=== PATIENT | male | born 1975 | race Caucasian/White ===

== ENCOUNTER 2016-08-21 01:51 | Emergency (ER) | payer SELFPAY ==
[~2016-08-21] VITALS: Ht 172.7 cm; Wt 66.0 kg
[~2016-08-21 01:51] MED LIST: GLUCTES27 XX; NOVO7030P2 SQ
[2016-08-21 01:53] VITALS: BP 158/84; PULSE 100; RESP 16; TEMP 98.1; O2SAT 98
[2016-08-21] MEDS ORDERED: LIDOCAINE 1%/EPINEPHrine 1:100,000 SOLN 20 ML VIAL INFIL ONE ×2 (04:00→05:15)
[2016-08-21] MEDS ORDERED: DOXYCYCLINE INJ 100 MG in SODIUM CHLORIDE 0.9% INJ 100 ML IV ONE (04:00)
[2016-08-21] MEDS ORDERED: cefTRIAXone INJ 1,000 MG in SODIUM CHLORIDE 0.9% INJ 100 ML IV ONE (04:00)
[2016-08-21] MEDS ORDERED: NOVO7030P2 SQ (04:14)
[2016-08-21 04:16] LABS: AUTOMATED NEUTROPHIL # 9.8 TH/MM3 (1.8-7.7); BASOPHIL # 0.1 TH/MM3 (0-0.2); BASOPHIL % 0.5 % (0.0-2.0); EOSINOPHIL % 0.2 % (0.0-4.0); HEMO FLAGS DIFF FINAL; LYMPH % 9.6 % (9.0-44.0); LYMPHOCYTE # 1.1 TH/MM3 (1.0-4.8); MEAN CELL VOLUME 88.8 FL (80.0-100.0); MEAN CORPUSCULAR HEMOGLOBIN 29.8 PG (27.0-34.0); MEAN CORPUSCULAR HGB CONC 33.6 % (32.0-36.0); MONO % 7.3 % (0.0-8.0); NEUT % 82.4 % (16.0-70.0); PLATELET COUNT 275 TH/MM3 (150-450); RED BLOOD COUNT 4.85 MIL/MM3 (4.50-5.90); RED CELL DISTRIBUTION WIDTH 13.1 % (11.6-17.2); WHITE BLOOD COUNT 11.9 TH/MM3 (4.0-11.0)
--- NOTE | 2016-08-21 05:40 | PD ---
HPI Chief Complaint: Skin Problem Time Seen by Provider: 03:45 (Hemalatha Maguire MD) Travel History International Travel<30 days: No Contact w/Intl Traveler<30days: No Traveled to known affect area: No (Hemalatha Maguire MD) History of Present Illness HPI This is a 41-year-old male patient type I diabetic who presents with a complaint of an area of tenderness swelling and redness over the left side of the face times several days. Patient denies fever and chills. Is unsure whether he was bitten by an insect patient does not remember any recent trauma. The significant other that what warm compresses applied and they attempted to aspirate material from the area without success. She notes progressive swelling of the left side of the face. 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 Reported Meds & Prescriptions Reported Meds & Active Scripts Active Doxycycline Hyclate DR (Doxycycline Hyclate) 100 Mg Tab 100 Mg PO BID 10 Days Keflex (Cephalexin) 500 Mg Cap 500 Mg PO Q12H 10 Days Tylenol-Codeine #3 (Acetaminophen-Codeine) 300-30 mg Tab 1 Tab PO Q6HR PRN Reported Novolin 70-30 Inj (Insulin Human Isoph/Insulin Regular) 1,000 Unit/10 Ml Vial 35 Units SQ BID (Tanja Pearl MD) Review of Systems ROS Limitations: Clinical Condition General / Constitutional: No: Fever, Chills, Weight Gain, Weight Loss, Other Eyes: No: Diploplia, Blurred Vision, Photophobia, Drainage, Redness, Foreign Body Sensation, Pain, Tearing, Blind Spots, Visual changes, Blindness, Other HENT: No: Headaches, Vertigo, Lightheadedness, Sore Throat, Rhinitis, Rhinorrhea, Congestion, Nosebleed, Neck Stiffness, Neck Pain, Masses, Gingival Bleeding, Dental Difficulties, Ear Discharge, Earache, Other Cardiovascular: No: Chest Pain or Discomfort, Palpitations, Irregular Rhythm, Tachycardia, Diaphoresis, Syncope, Dyspnea on exertion, Varicosities, Edema, Cyanosis, Varicosities, Phlebitis, Claudication, Other Respiratory: No: Cough, Shortness of Breath, Wheezing, Sneezing, Orthopnea, Hemoptysis, Stridor, Night Sweats, Pleuritic Pain, Other Gastrointestinal: No: Nausea, Vomiting, Diarrhea, Abdominal Pain, Hematemesis, Hematochezia, Constipation, Changes in Bowel Habits, Indigestion, Dysphagia, Loss of Appetite, Other Genitourinary: No: Urgency, Frequency, Dysuria, Nocturia, Hematuria, Decreased Urinary Output, Oliguria, Hesitancy, Dribbling, Incontinence, Pelvic Pain, Flank Pain, Dyspareunia, Discharge, Dysmenorrhea, Menorrhagia, Metorrhagia, Vaginal Bleeding, Other Musculoskeletal: No: Myalgias, Arthralgias, Limited ROM, Weakness, Cramping, Edema, Pain, Atrophy, Other Skin: Positive Lumps, Positive Lesions, No Rash, No Itching, No Dryness, No Hives, No Change in Pigmentation, No Change in nails, No Alopecia, No Breast Lumps, No Breast Tenderness, No Breast Swelling, No Other Neurologic: No: Weakness, Dizziness, Syncope, Focal Abnormalities, Coordination Problem, Tremor, Ataxia, Headache, Change in Mentation, Slurred Speech, Paresthesia, Incontinence, Seizures, Sensory Disturbance, Other Psychiatric: No: Anxiety, Depression, Suicidal Ideations, Disorder of Thought, Mood Disorder, Substance Abuse, Homicidal Ideation, Other Endocrine: No: Heat Intolerance, Cold Intolerance, Polyuria, Polydipsia, Other Hematologic/Lymphatic: No: Easy Bruising, Lymph Node Enlargement, Other (Hemalatha Maguire MD) Physical Exam Narrative Dip Stand Loader signing for document in draft. (Tanja Pearl MD) Data Data Orders Complete Blood Count With Diff (08/21/16 03:49) Ceftriaxone Inj (Rocephin Inj) (08/21/16 04:00) Doxycycline Inj (Vibramycin Inj) (08/21/16 04:00) Tray, Incision & Drainage Ea (08/21/16 03:49) Lidocai-Epi 1%-1:100,000 Inj (Xylocaine- (08/21/16 04:00) Lidocai-Epi 1%-1:100,000 Inj (Xylocaine- (08/21/16 05:15) Comprehensive Metabolic Panel (08/21/16 05:29) (Tanja Pearl MD) [facility] Medical Decision Making Medical Screen Exam Complete: Yes Emergency Medical Condition: Yes Medical Record Reviewed: Yes Differential Diagnosis Differential diagnoses atrial cellulitis abscess insect bite Narrative Course This is a 41-year-old male type I diabetic patient who presents with swelling redness and tendernes over the left lateral brow region A Marcela attempted to treat home with warm compresses and pressure to attempt to aspirate area therapeutic interventions at home were ineffective. He is nontoxic in presentation of UBC 11,000 with a left shift area clean with ChloraPrep and anesthetized with lidocaine 1% with epi and use a 18-gauge needle and a cerumen attempted to aspirate area unsuccessfully area is mildly edematous but there is no true fluctuance noted Patient is nontoxic in appearance She given IV Keflex and IV doxycycline and the plan is to for the patient to return in 24 hours for reevaluation and determination as to whether a drainage procedure is indicated She also given analgesics IV for pain and will be discharged on Tylenol 3 and Keflex and doxycycline (Hemalatha Maguire MD) Narrative Course Dip Stand Loader signing for document in draft. (Tanja Pearl MD) Diagnosis Primary Impression: Facial cellulitis Additional Instructions: Apply warm compresses every 3-4 hours to affected area Take Tylenol No. 3 as needed for pain Finished antibiotic Turned to the ER in 24 hours for reevaluation of affected area and determination of the need for CT scan of the maxillofacial bones and a determination if incision and drainage is indicated Seek medical care immediately if there is increased pain and swelling redness of the area fever chills Scripts Doxycycline Hyclate DR 100 Mg [id number] Mg PO BID 10 Days Ref 0 Prov:Hemalatha Maguire MD 08/21/16 Cephalexin (Keflex)500 Mg [id number] Mg PO Q12H 10 Days Ref 0 Prov:Hemalatha Maguire MD 08/21/16 Acetaminophen-Codeine (Tylenol-Codeine #3)300-30 mg Tab1 Tab PO Q6HR PRN (PAIN) #15 TAB Ref 0 Prov:Hemalatha Maguire MD 08/21/16 Disposition: 01 DISCHARGE HOME Condition: Stable Hemalatha Maguire MD Aug 21, 2016 05:40 Tanja Pearl MD Sep 05, 2016 17:20 Differential Comment MDM Medical Decision Making Medical Screen Exam Complete: Yes Emergency Medical Condition: Yes Medical Record Reviewed: Yes Differential Diagnosis Differential diagnoses atrial cellulitis abscess insect bite Narrative Course This is a 41-year-old male type I diabetic patient who presents with swelling redness and tendernes over the left lateral brow region A Marcela attempted to treat home with warm compresses and pressure to attempt to aspirate area therapeutic interventions at home were ineffective. He is nontoxic in presentation of UBC 11,000 with a left shift area clean with ChloraPrep and anesthetized with lidocaine 1% with epi and use a 18-gauge needle and a cerumen attempted to aspirate area unsuccessfully area is mildly edematous but there is no true fluctuance noted Patient is nontoxic in appearance She given IV Keflex and IV doxycycline and the plan is to for the patient to return in 24 hours for reevaluation and determination as to whether a drainage procedure is indicated She also given analgesics IV for pain and will be discharged on Tylenol 3 and Keflex and doxycycline Diagnosis Primary Impression: Facial cellulitis Additional Instructions: Apply warm compresses every 3-4 hours to affected area Take Tylenol No. 3 as needed for pain Finished antibiotic Turned to the ER in 24 hours for reevaluation of affected area and determination of the need for CT scan of the maxillofacial bones and a determination if incision and drainage is indicated Seek medical care immediately if there is increased pain and swelling redness of the area fever chills Scripts Doxycycline Hyclate DR 100 Mg [id number] Mg PO BID 10 Days Ref 0 Prov:Hemalatha Maguire MD 08/21/16 Cephalexin (Keflex)500 Mg [id number] Mg PO Q12H 10 Days Ref 0 Prov:Hemalatha Maguire MD 08/21/16 Acetaminophen-Codeine (Tylenol-Codeine #3)300-30 mg Tab1 Tab PO Q6HR PRN (PAIN) #15 TAB Ref 0 Prov:Hemalatha Maguire MD 08/21/16 Disposition: 01 DISCHARGE HOME Condition: Stable Hemalatha Maguire MD Aug 21, 2016 05:40
[2016-08-21] MEDS ORDERED: CEPH-460 PO (05:53)
[2016-08-21] MEDS ORDERED: TYLETAB34 PO (05:53)
[2016-08-21] MEDS ORDERED: DOXY1TAB6 PO (05:54)
[2016-08-21 06:27] LABS: ALKALINE PHOSPHATASE 92 U/L (45-117); ALT (GPT) 16 U/L (12-78); ANION GAP 7 MEQ/L (5-15); AST (GOT) 33 U/L (15-37); BICARBONATE 26.2 MEQ/L (21.0-32.0); BLOOD UREA NITROGEN 14 MG/DL (7-18); CHLORIDE 103 MEQ/L (98-107); GLOMERULAR FILTRATION RATE 80 ML/MIN (>89); POTASSIUM 5.7 MEQ/L (3.5-5.1); SODIUM (NA) 136 MEQ/L (136-145); TOTAL BILIRUBIN ADULT 0.8 MG/DL (0.2-1.0)
== END 2016-08-21 05:58 | disposition home or self-care (01) ==
LOC: NEPC 01:51
DX: L03.211 Cellulitis of face (principal); E10.9 Type 1 diabetes mellitus without complications; I10 Essential (primary) hypertension; Z72.0 Tobacco use; Z87.39 Personal history of other diseases of the musculoskeletal system and connective tissue
CPT/HCPCS: 10160; 80053; 85025; 96365; 96367; 99284; J0696

== ENCOUNTER 2016-10-04 14:23 | Emergency (ER) | payer SELFPAY ==
[~2016-10-04] VITALS: Ht 172.7 cm; Wt 65.0 kg
[~2016-10-04 14:23] MED LIST changes: +CEPH-460 PO; +DOXY1TAB6 PO; -GLUCTES27 XX; +TYLETAB34 PO
[2016-10-04 14:34] VITALS: BP 135/84; PULSE 77; RESP 18; TEMP 98.4; O2SAT 98
[2016-10-04] MEDS ORDERED: SODIUM CHLORIDE 0.9% FLUSH 10 ML FLUSH IV FLUSH PRN (15:15)
[2016-10-04] MEDS ORDERED: ONDANSETRON HCL 4 MG/2 ML VIAL IVP ONE (15:15)
[2016-10-04] MEDS ORDERED: CIPROFLOXACIN 400 MG PREMIX 200 ML IV ONE (15:15)
[2016-10-04] MEDS ORDERED: SODIUM CHLOR 0.9% 1000 ML INJ 1,000 ML IV SCH (15:15)
[2016-10-04] MEDS ORDERED: VANCOMYCIN INJ 1,000 MG in SODIUM CHLOR 0.9% 250 ML INJ 250 ML IV ONE (15:15)
--- NOTE | 2016-10-04 15:20 | PD ---
HPI Chief Complaint: Diabetic Time Seen by Provider: 15:20 Travel History International Travel<30 days: No Contact w/Intl Traveler<30days: No Traveled to known affect area: No History of Present Illness HPI Patient comes in complaining of buttock infection ongoing for 3-4 days and hyperglycemia that he first noticed shortly prior to coming to the emergency department. Patient is a type I diabetic and has been so for approximately 35 years and ran out of his insulin this morning. He states his blood sugars normally run between 100-200. However today when he checked it it was over 400. He denies doing anything for this prior to coming to the emergency department. Patient states he noticed a sore on his buttocks and thought it will go away. States progressively got worse and started draining yesterday. Patient reports pain with palpation without radiation. Describes pain as pressure-like in nature. Denies any fevers, chest pain, shortness of breath, nausea, vomiting, loss or change in bowel or bladder, headache, or numbness or tingling anywhere. 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 Reported Meds & Prescriptions Reported Meds & Active Scripts Active Bactrim DS (Sulfamethoxazole-Trimethoprim) 800-160 Mg Tab 1 Tab PO BID Cipro (Ciprofloxacin HCl) 500 Mg Tab 500 Mg PO BID [address] (Doxycycline Hyclate) 100 Mg Tab 100 Mg PO BID 10 Days Keflex (Cephalexin) 500 Mg Cap 500 Mg PO Q12H 10 Days Tylenol-Codeine #3 (Acetaminophen-Codeine) 300-30 mg Tab 1 Tab PO Q6HR PRN Reported Novolin 70-30 Inj (Insulin Human Isoph/Insulin Regular) 1,000 Unit/10 Ml Vial 35 Units SQ BID Review of Systems Except as stated in HPI: all other systems reviewed are Neg Physical Exam Narrative GENERAL: Well-developed, well nourished, in no acute distress, and non-ill appearing. SKIN: Draining abscess noted right buttocks is tender to palpation. There is no crepitus, fluctuation, or significant surrounding cellulitis. HEAD: Atraumatic. Normocephalic. EYES: Pupils equal and round. EOMI. No scleral icterus. No injection or drainage. ENT: No nasal bleeding or discharge. Mucous membranes pink and moist. NECK: Trachea midline. Supple. No nuclear rigidity. CARDIOVASCULAR: Regular rate and rhythm. No murmur appreciated. RESPIRATORY: No accessory muscle use. No respiratory distress. Clear to auscultation. Breath sounds equal bilaterally. MUSCULOSKELETAL: No obvious deformities. No clubbing. No cyanosis. No edema. Full range of motion. NEUROLOGICAL: Awake and alert. No obvious cranial nerve deficits. Motor grossly within normal limits. Normal speech. PSYCHIATRIC: Appropriate mood and affect; insight and judgment normal. Data Data Last Documented VS Vital Signs Date Time Temp Pulse Resp B/P Pulse Ox O2 Delivery O2 Flow Rate FiO2 10/04/16 14:34 98.4 77 18 135/84 98 Orders Wound Culture And Gram Stain (10/04/16 15:15) Complete Blood Count With Diff (10/04/16 15:15) Iv Access Insert/Monitor (10/04/16 15:15) Ecg Monitoring (10/04/16 15:15) Oximetry (10/04/16 15:15) Ondansetron Inj (Zofran Inj) (10/04/16 15:15) Ciprofloxacin 400 Mg Premix (Cipro 400 M (10/04/16 15:15) Sodium Chlor 0.9% 1000 Ml Inj (Ns 1000 M (10/04/16 15:15) Sodium Chloride 0.9% Flush (Ns Flush) (10/04/16 15:15) Comprehensive Metabolic Panel (10/04/16 15:15) Beta Hydroxybutyrate (Acetone) (10/04/16 15:15) Urinalysis - C+S If Indicated (10/04/16 15:15) Blood Gas Venous (Vbg) (10/04/16 15:15) Blood Glucose (10/04/16 15:15) NPO (10/04/16 15:15) Vancomycin Inj (Vancomycin Inj) (10/04/16 15:15) Insulin Human Regular Inj (Novolin R Inj (10/04/16 16:45) Sodium Chlor 0.9% 1000 Ml Inj (Ns 1000 M (10/04/16 17:45) Labs Laboratory Tests Test 10/04/16 10/04/16 10/04/16 16:10 16:40 16:48 White Blood Count 8.9 TH/MM3 Red Blood Count 4.67 MIL/MM3 Hemoglobin 14.7 GM/DL Hematocrit 42.1 % Mean Corpuscular Volume 90.3 FL Mean Corpuscular Hemoglobin 31.5 PG Mean Corpuscular Hemoglobin 34.9 % Concent Red Cell Distribution Width 13.7 % Platelet Count 276 TH/MM3 Mean Platelet Volume 8.2 FL Neutrophils (%) (Auto) 69.8 % Lymphocytes (%) (Auto) 17.7 % Monocytes (%) (Auto) 10.4 % Eosinophils (%) (Auto) 0.8 % Basophils (%) (Auto) 1.3 % Neutrophils # (Auto) 6.2 TH/MM3 Lymphocytes # (Auto) 1.6 TH/MM3 Monocytes # (Auto) 0.9 TH/MM3 Eosinophils # (Auto) 0.1 TH/MM3 Basophils # (Auto) 0.1 TH/MM3 CBC Comment DIFF FINAL Differential Comment Sodium Level 135 MEQ/L Potassium Level 5.2 MEQ/L Chloride Level 99 MEQ/L Carbon Dioxide Level 26.5 MEQ/L Anion Gap 10 MEQ/L Blood Urea Nitrogen 19 MG/DL Creatinine 1.11 MG/DL Estimat Glomerular Filtration 73 ML/MIN Rate Random Glucose 441 MG/DL Calcium Level 9.3 MG/DL Total Bilirubin 0.7 MG/DL Aspartate Amino Transf 21 U/L (AST/SGOT) Alanine Aminotransferase 22 U/L (ALT/SGPT) Alkaline Phosphatase 117 U/L Total Protein 7.6 GM/DL Albumin 3.6 GM/DL B-Hydroxybutyrate 0.90 MMOL/L Urine Color LIGHT-YELLOW Urine Turbidity CLEAR Urine pH 6.0 Urine Specific [place] 1.040 Urine Protein NEG mg/dL Urine Glucose (UA) 1000 mg/dL Urine Ketones 10 mg/dL Urine Occult Blood SMALL Urine Nitrite NEG Urine Bilirubin NEG Urine Urobilinogen LESS THAN 2.0 MG/DL Urine Leukocyte Esterase NEG Urine RBC 6 /hpf Urine WBC 2 /hpf Microscopic Urinalysis Comment CULT NOT INDICATED Blood Gas Puncture Site LINE Blood Gas Patient Temperature 98.6 Venous Blood pH 7.40 Venous Blood Partial Pressure 42 mmHg CO2 Venous Blood Partial Pressure 50 mmHg O2 Venous Blood HCO3 25 mmol/L Venous Blood Oxygen Saturation 83 % Venous Blood Oxygen Content 17.2 Vol % Venous Blood Base Excess 0.6 mmol/L MDM Medical Decision Making Medical Screen Exam Complete: Yes Emergency Medical Condition: Yes Differential Diagnosis Abscess, cellulitis, uncontrolled diabetes, hyperglycemia, pilonidal abscess, other Narrative Course Patient in no obvious distress upon re-evaluation. All pertinent laboratory result(s) discussed with patient. Patient was asked if they wanted to speak to my attending, which the patient did not wish to do at this time. Patient wanting to leave secondary to be able to hot die picker his insulin from the pharmacy. Patient is not wanting to stay for remainder of IV antibiotics and further treatment. Patient is wanting to leave AGAINST MEDICAL ADVICE. I explained to the patient that I would still give him prescriptions for antibiotics and that I strongly recommend he stay to at least finish his antibiotics and IV fluids. Patient verbalized understanding of this however he still wanted to leave AGAINST MEDICAL ADVICE. The risks of leaving against medical advice without further evaluation treatment were discussed with the patient. These risks include cardiac dysfunction, cardiac dysrhythmia, possible heart attack, possible stroke or . The patient indicated understanding of these risks and appeared to have the capacity to make this decision. This was witnessed in front of staff trainer Vale. Any questions/concerns in reference to patient diagnosis/condition discussed and clarified prior to patient's discharge. Reinforced sheer importance of close follow up with patient's primary physician or primary care clinic or return here 2 days for recheck. Instructed patient to return to ED immediately, if symptoms return/worsen. Pt showed understanding of above instructions. Further instructions and recommendations were detailed in discharge paperwork. Pt ambulated without difficulty out of ED at discharge AGAINST MEDICAL ADVICE. Diagnosis Primary Impression: Left against medical advice Additional Impression: Abscess Patient Instructions: Abscess (GEN), Against Medical Advice (ED), General Instructions Additional Instructions: Follow-up with your primary care physician or return here in 2 days for recheck of your abscess. Take all medication as prescribed. Return to the emergency department if symptoms get worse. Med/Other Pt SpecificInfo: Prescription(s) given Scripts Sulfamethoxazole-Trimethoprim (Bactrim DS)800-160 Mg Tab1 Tab PO BID #14 TAB Ref 0 Prov:Fannie Christiansen DO 10/04/16 Ciprofloxacin (Cipro)500 Mg [id number] Mg PO BID 7 Days Ref 0 Prov:Christiansen,Fannie DO 10/04/16 Disposition: 07 AGAINST MEDICAL ADVICE Condition: Stable Stephen Ortega Oct 04, 2016 15:20
[2016-10-04] MEDS ORDERED: INSULIN HUMAN REGULAR 1,000 UNITS/10 ML VIAL IV PUSH ONE (16:45)
[2016-10-04 16:50] LABS: AUTOMATED NEUTROPHIL # 6.2 TH/MM3 (1.8-7.7); BASOPHIL # 0.1 TH/MM3 (0-0.2); BASOPHIL % 1.3 % (0.0-2.0); EOSINOPHIL # 0.1 TH/MM3 (0-0.4); EOSINOPHIL % 0.8 % (0.0-4.0); HEMATOCRIT 42.1 % (39.0-51.0); HEMO FLAGS DIFF FINAL; LYMPH % 17.7 % (9.0-44.0); LYMPHOCYTE # 1.6 TH/MM3 (1.0-4.8); MEAN CELL VOLUME 90.3 FL (80.0-100.0); MEAN CORPUSCULAR HEMOGLOBIN 31.5 PG (27.0-34.0); MEAN CORPUSCULAR HGB CONC 34.9 % (32.0-36.0); MONO % 10.4 % (0.0-8.0); NEUT % 69.8 % (16.0-70.0); PLATELET COUNT 276 TH/MM3 (150-450); RED BLOOD COUNT 4.67 MIL/MM3 (4.50-5.90); RED CELL DISTRIBUTION WIDTH 13.7 % (11.6-17.2); WHITE BLOOD COUNT 8.9 TH/MM3 (4.0-11.0)
[2016-10-04 17:01] LABS: BLOOD GAS VENOUS BASE EXCESS 0.6 mmol/L (-2-2); BLOOD GAS VENOUS HCO3 25 mmol/L (22-26); BLOOD GAS VENOUS O2 CONTENT 17.2 Vol % (9.0-17.0); BLOOD GAS VENOUS O2 HGB SAT 83 % (70-76); BLOOD GAS VENOUS PCO2 42 mmHg (44-48); BLOOD GAS VENOUS PO2 50 mmHg (35-40); CRITICAL VALUE NO; TEMP CORR TO 98.6
[2016-10-04 17:02] LABS: DRAW SITE LINE; STAT YES
[2016-10-04 17:17] LABS: ANION GAP 10 MEQ/L (5-15)
[2016-10-04 17:19] LABS: ALKALINE PHOSPHATASE 117 U/L (45-117); ALT (GPT) 22 U/L (12-78); AST (GOT) 21 U/L (15-37); BICARBONATE 26.5 MEQ/L (21.0-32.0); BLOOD UREA NITROGEN 19 MG/DL (7-18); CHLORIDE 99 MEQ/L (98-107); GLOMERULAR FILTRATION RATE 73 ML/MIN (>89); SODIUM (NA) 135 MEQ/L (136-145); TOTAL BILIRUBIN ADULT 0.7 MG/DL (0.2-1.0)
[2016-10-04 17:26] LABS: POTASSIUM 5.2 MEQ/L (3.5-5.1)
[2016-10-04 17:42] LABS: BLOOD, URINE SMALL (NEG); GLUCOSE,URINE 1000 mg/dL (NEG); KETONE, URINE 10 mg/dL (NEG); NITRITE,URINE NEG (NEG); URINE COLOR LIGHT-YELLOW (YELLW/STRAW)
[2016-10-04 17:43] LABS: COMMENT (UR) CULT NOT INDICATED; CULTURE IF INDICATED CULT NOT INDICATED
[2016-10-04] MEDS ORDERED: SODIUM CHLOR 0.9% 1000 ML INJ 1,000 ML IV ONE (17:45)
[2016-10-04] MEDS ORDERED: CIPR-9 PO (18:04)
[2016-10-04] MEDS ORDERED: BACT800T5 PO (18:04)
== END 2016-10-04 18:31 | disposition left against medical advice (07) ==
LOC: NEPE 14:23
DX: E11.65 Type 2 diabetes mellitus with hyperglycemia (principal); B95.62 Methicillin resistant Staphylococcus aureus infection as the cause of diseases classified elsewhere; I10 Essential (primary) hypertension; Z79.4 Long term (current) use of insulin; Z53.21 Procedure and treatment not carried out due to patient leaving prior to being seen by health care provider
CPT/HCPCS: 80053; 81001; 82010; 82805; 85025; 86403; 87070; 87186; 96374; 96375; 99284; J0744; J1815; J2405; J7030; 87205